=== PATIENT | born 1960 | race Caucasian/White ===

== ENCOUNTER 2022-06-10 20:52 | Emergency (ER) | payer OTHER ==
[~2022-06-10] VITALS: Ht 154.9 cm; Wt 68.0 kg
--- NOTE | 2022-06-10 21:12 | NUR ---
Pt not in waiting room.
[2022-06-10] MEDS ORDERED: predniSONE 20 MG TABLET PO ONE (22:15)
[2022-06-10] MEDS ORDERED: GUAIFENESIN/CODEINE 5 ML LIQUID UDC PO ONE (22:15)
[2022-06-10] MEDS ORDERED: LORAZEPAM 0.5 MG TABLET PO ONE (22:15)
[2022-06-10 22:24] LABS: HEMATOCRIT 31.9 % (31.2-47.1); MEAN CORPUSCULAR HEMOGLOBIN 27.8 uug (23.8-33.4); MEAN CORPUSCULAR VOLUME 84.5 fL (73.0-96.2); PLATELET COUNT (AUTO) 272 K/uL (152-408)
[2022-06-10 22:31] LABS: CARBON DIOXIDE 30 mmol/L (21-32); CHLORIDE 103 mmol/L (98-107); CREATININE 1.3 mg/dL (0.6-1.3); GLUCOSE 142 mg/dL (74-106); POTASSIUM 4.1 mmol/L (3.5-5.1); UREA NITROGEN, BLOOD 27 mg/dL (7-18)
[2022-06-10] MEDS ORDERED: predniSONE 20 MG TABLET ONE (22:34)
[2022-06-10] MEDS ORDERED: LORAZEPAM 1 MG TABLET ONE (22:34)
[2022-06-10] MEDS ORDERED: GUAIFENESIN/CODEINE 5 ML LIQUID UDC ONE (22:35)
[2022-06-10 22:44] LABS: ALANINE AMINOTRANSFERASE 23 U/L (14-63); ALKALINE PHOSPHATASE 83 U/L (50-136); ASPARTATE AMINOTRANSFERASE 8 U/L (15-37); BILIRUBIN,DIRECT 0.1 mg/dL (0.0-0.2); BILIRUBIN,TOTAL 0.3 mg/dL (0.2-1.0); TOTAL PROTEIN, SERUM 6.8 g/dL (6.4-8.2)
[2022-06-11] MEDS ORDERED: PRED20TA PO (02:15)
[2022-06-11] MEDS ORDERED: ALBU8.5H8 IH (02:15)
== END 2022-06-11 04:44 | disposition home or self-care (01) ==
LOC: ER 20:58
DX: R07.9 Chest pain, unspecified (principal); J40 Bronchitis, not specified as acute or chronic; Z20.822 Contact with and (suspected) exposure to COVID-19; R94.31 Abnormal electrocardiogram [ECG] [EKG]; F17.218 Nicotine dependence, cigarettes, with other nicotine-induced disorders; J44.9 Chronic obstructive pulmonary disease, unspecified; I25.2 Old myocardial infarction; E11.22 Type 2 diabetes mellitus with diabetic chronic kidney disease; N18.9 Chronic kidney disease, unspecified; Z88.0 Allergy status to penicillin; Z88.8 Allergy status to other drugs, medicaments and biological substances; K21.9 Gastro-esophageal reflux disease without esophagitis; R79.1 Abnormal coagulation profile; R06.2 Wheezing
CPT/HCPCS: 99285; 71045; 87426; 80076; 80048; 83880; 85025; 85379; 87400; 84484 ×2; 36415 ×2; 93005; J7512; A4663